=== PATIENT | male | born 1955 | race Two or more races ===

== ENCOUNTER 2021-06-01 02:12 | Inpatient (IN) | payer OTHER ==
[2021-06-01] MEDS ORDERED: MAG HYDROX/AL HYDROX/SIMETH 30 ML UNIT-DOSE CUP PO ONE (02:32)
[2021-06-01] MEDS ORDERED: MAG HYDROX/AL HYDROX/SIMETH 30 ML UNIT-DOSE CUP ONE (02:40)
[2021-06-01 02:59] LABS: BASO % 0.5 % (0-2.0); EOS % 1.8 % (0-4.5); HEMATOCRIT 39.8 % (35.4-49); HEMOGLOBIN 13.7 GM/dL (11.7-16.9); LYMPH % 29.3 % (8-40); MCH 31.3 pg (25.7-33.7); MCHC 34.4 g/dl (32.0-35.9); MEAN PLT VOLUME 7.1 fl (7.5-11.1); MONO % 9.2 % (3.8-10.2); NEUT % 59.2 % (42.8-82.8); PLATELET COUNT 171 10^3/uL (134-434); RBC 4.37 M/mm3 (4.00-5.60); RDW 13.6 % (11.9-15.9); WHITE BLOOD COUNT 6.9 K/mm3 (4.0-10.0)
[2021-06-01 03:15] LABS: ACTIVATED PTT 45.8 SECONDS (25.2-36.5)
[2021-06-01 03:16] LABS: INR 1.16 (0.83-1.09); PROTHROMBIN TIME (PATIENT) 14.3 SEC (9.7-13.0)
[2021-06-01 03:17] LABS: CHLORIDE 103 mmol/L (98-107); SODIUM 139 mmol/L (136-145)
[2021-06-01 03:20] LABS: CALCIUM 8.6 mg/dL (8.5-10.1); GLUCOSE,RANDOM 83 mg/dL (74-106)
[2021-06-01 03:21] LABS: ALBUMIN 3.7 g/dl (3.4-5.0); ANION GAP 6 MMOL/L (8-16); BLOOD UREA NITROGEN 27.5 mg/dL (7-18); CO2 29 mmol/L (21-32); LIPASE 87 U/L (73-393); MAGNESIUM 1.9 mg/dL (1.8-2.4)
[2021-06-01 03:24] LABS: CREATININE 1.1 mg/dL (0.55-1.3); SGOT/AST 46 U/L (15-37); SGPT/ALT 21 U/L (13-61)
[2021-06-01 03:25] LABS: BILIRUBIN,TOTAL 0.6 mg/dL (0.2-1); TOT PROT 8.2 g/dl (6.4-8.2)
[2021-06-01 03:26] LABS: ALK PHOS 89 U/L (45-117)
[2021-06-01] MEDS ORDERED: PROMETHAZINE HCL 25 MG/1 ML VIAL IM PRN (08:54)
[2021-06-01] MEDS ORDERED: FOLIC ACID INJECTION - 1 MG, THIAMINE HCL 100 MG, MULTIVIT INJECTION ADULT 10 ML in SOD... IVPB ONE (08:56)
[2021-06-01] MEDS ORDERED: LORazepam 1 MG TABLET PO PRN (08:58)
[2021-06-01] MEDS ORDERED: POLYETHYLENE GLYCOL 3350 119 GM BTL PO SCH (10:00)
[2021-06-01] MEDS ORDERED: POLYETHYLENE GLYCOL (HEALTHYLAX) 3350 17 GM PACKET PO SCH (10:00)
[2021-06-01] MEDS ORDERED: methaDONE HCL 40 MG DISPERSABLE TABLET PO SCH (10:00)
[2021-06-01] MEDS ORDERED: methaDONE HCL 10 MG TABLET ONE (10:42)
[2021-06-01] MEDS ORDERED: ENOXAPARIN NA (PORCINE) 40 MG/0.4 ML DISP.SYRIN SQ ONE (10:43)
[2021-06-01] MEDS: NICOTINE 7 MG/24 HOURS TOPICAL PATCH TD SCH (10:47)
[2021-06-01] MEDS: ENOXAPARIN NA (PORCINE) 40 MG/0.4 ML DISP.SYRIN SQ SCH (10:47)
[2021-06-01] MEDS: DEXTROSE 5%-NORMAL SALINE 1,000 ML IV SCH (12:07)
[2021-06-01] MEDS ORDERED: LORazepam 1 MG TABLET ONE ×3 (13:06→23:26)
[2021-06-01] MEDS: LORazepam 2 MG TABLET PO SCH ×3 (13:12→23:29)
[2021-06-02] MEDS ORDERED: LORazepam 1 MG TABLET ONE (04:58)
[2021-06-02] MEDS: LORazepam 2 MG TABLET PO SCH ×2 (05:03→12:48)
[2021-06-02] MEDS ORDERED: methaDONE 40 MG, methaDONE 30 MG PO SCH (06:00)
[2021-06-02] MEDS ORDERED: methaDONE HCL 10 MG TABLET ONE (06:47)
[2021-06-02] MEDS ORDERED: methaDONE HCL 40 MG DISPERSABLE TABLET ONE (06:48)
[2021-06-02 08:21] LABS: BLOOD UREA NITROGEN 14.8 mg/dL (7-18); CHLORIDE 109 mmol/L (98-107); CREATININE 0.8 mg/dL (0.55-1.3); GLUCOSE,RANDOM 78 mg/dL (74-106); SODIUM 143 mmol/L (136-145)
[2021-06-02 08:22] LABS: ALBUMIN 3.1 g/dl (3.4-5.0); ALK PHOS 67 U/L (45-117); BILIRUBIN,TOTAL 0.5 mg/dL (0.2-1); CALCIUM 7.9 mg/dL (8.5-10.1); CO2 29 mmol/L (21-32); MAGNESIUM 1.8 mg/dL (1.8-2.4); PHOSPHOROUS 2.8 mg/dL (2.5-4.9); SGOT/AST 36 U/L (15-37); SGPT/ALT 18 U/L (13-61); TOT PROT 6.7 g/dl (6.4-8.2)
[2021-06-02 09:38] LABS: HEMATOCRIT 35.7 % (35.4-49); HEMOGLOBIN 12.2 GM/dL (11.7-16.9); MCH 31.2 pg (25.7-33.7); MCHC 34.1 g/dl (32.0-35.9); MEAN CELL VOLUME 91.6 fl (80-96); PLATELET COUNT 136 10^3/uL (134-434); RDW 13.9 % (11.9-15.9); WHITE BLOOD COUNT 4.1 K/mm3 (4.0-10.0)
[2021-06-02 09:39] LABS: MEAN PLT VOLUME 7.5 fl (7.5-11.1)
[2021-06-02] MEDS ORDERED: THIAMINE HCL 100 MG TABLET (FP) PO SCH (10:00)
[2021-06-02] MEDS ORDERED: FOLIC ACID 1 MG TABLET (FP) PO SCH (10:00)
[2021-06-02] MEDS: ENOXAPARIN NA (PORCINE) 40 MG/0.4 ML DISP.SYRIN SQ SCH (10:00)
[2021-06-02] MEDS ORDERED: LORazepam 2 MG/ML SDV VIAL ONE (12:49)
[2021-06-02] MEDS: DEXTROSE 5%-NORMAL SALINE 1,000 ML IV SCH ×2 (12:49→18:05)
[2021-06-02] MEDS ORDERED: PT OWN MED DRAWER 7, Y5N ONE (13:29)
[2021-06-02] MEDS: NICOTINE 7 MG/24 HOURS TOPICAL PATCH TD SCH (13:33)
[2021-06-02 16:08] LABS: BASO % 0.8 % (0-2.0); EOS % 2.8 % (0-4.5); HEMOGLOBIN 12.2 GM/dL (11.7-16.9); LYMPH % 36.1 % (8-40); MCH 30.9 pg (25.7-33.7); MCHC 33.9 g/dl (32.0-35.9); MEAN CELL VOLUME 91.1 fl (80-96); MEAN PLT VOLUME 7.3 fl (7.5-11.1); MONO % 9.6 % (3.8-10.2); NEUT % 50.7 % (42.8-82.8); PLATELET COUNT 131 10^3/uL (134-434); RBC 3.95 M/mm3 (4.00-5.60); RDW 13.9 % (11.9-15.9); WHITE BLOOD COUNT 4.3 K/mm3 (4.0-10.0)
[2021-06-02 16:26] LABS: EPI CELLS 2 /uL (0-25.1); HYALINE CASTS 0 /uL (0-3.1); URINE APPEARANCE CLEAR; URINE BACTERIA 7 /uL (0-1359); URINE BILIRUBIN NEGATIVE (NEGATIVE); URINE COLOR YELLOW; URINE GLUCOSE (UA) NEGATIVE (NEGATIVE); URINE KETONE NEGATIVE (NEGATIVE); URINE LEUK ESTERASE NEGATIVE (NEGATIVE); URINE NITRITE NEGATIVE (NEGATIVE); URINE PROTEIN NEGATIVE (NEGATIVE); URINE RBC 190 /uL (0-23.9); URINE WBC 6 /uL (0-25.8)
[2021-06-02 16:33] LABS: COCAINE, UR NEGATIVE (NEGATIVE); URINE BARBITURATES NEGATIVE (NEGATIVE)
[2021-06-02 16:34] LABS: PHENCYCLIDINE,URINE NEGATIVE (NEGATIVE)
[2021-06-02 16:46] LABS: METHADONE, UR POSITIVE (NEGATIVE); OPIATES, URI POSITIVE (NEGATIVE); URINE AMPHETAMINES NEGATIVE (NEGATIVE); URINE BENZODIAZEPINES POSITIVE (NEGATIVE)
[2021-06-02] MEDS ORDERED: LORazepam 1 MG TABLET PO PRN (17:18)
[2021-06-02] MEDS ORDERED: PROMETHAZINE HCL 25 MG/1 ML VIAL IM PRN (17:18)
[2021-06-02 17:43] VITALS: BMI 23.3
[2021-06-02] MEDS ORDERED: PNEUMOC 13-VAL CONJ-DIP CRM/PF 0.5 ML DISP.SYRIN IM ONE (17:43)
[2021-06-02] MEDS ORDERED: FLU VACC QS2021-22(6MOS UP)/PF 60 MCG/0.5 ML SYRINGE IM ONE (17:43)
[2021-06-02] MEDS ORDERED: LORazepam 2 MG TABLET PO SCH (23:00)
[2021-06-03] MEDS ORDERED: LORazepam 1 MG TABLET PO SCH ×2 (00:15→05:00)
[2021-06-03] MEDS: LORazepam 2 MG TABLET PO SCH (02:39)
[2021-06-03] MEDS: LORazepam 1 MG TABLET PO SCH ×2 (05:57→11:41)
[2021-06-03] MEDS: DEXTROSE 5%-NORMAL SALINE 1,000 ML IV SCH (05:58)
[2021-06-03] MEDS ORDERED: methaDONE 40 MG, methaDONE 30 MG PO SCH (06:00)
[2021-06-03 08:28] LABS: BASO % 0.5 % (0-2.0); EOS % 2.7 % (0-4.5); HEMATOCRIT 38.6 % (35.4-49); MCH 31.2 pg (25.7-33.7); MCHC 33.6 g/dl (32.0-35.9); MEAN CELL VOLUME 92.7 fl (80-96); MEAN PLT VOLUME 7.7 fl (7.5-11.1); MONO % 8.2 % (3.8-10.2); NEUT % 52.6 % (42.8-82.8); PLATELET COUNT 162 10^3/uL (134-434); RBC 4.16 M/mm3 (4.00-5.60); WHITE BLOOD COUNT 5.6 K/mm3 (4.0-10.0)
[2021-06-03] MEDS ORDERED: FOLIC ACID 1 MG TABLET (FP) PO SCH (10:00)
[2021-06-03] MEDS ORDERED: THIAMINE HCL 100 MG TABLET (FP) PO SCH (10:00)
[2021-06-03] MEDS ORDERED: NICOTINE 7 MG/24 HOURS TOPICAL PATCH TD SCH (10:00)
[2021-06-03 16:11] LABS: BLOOD UREA NITROGEN 9.4 mg/dL (7-18); CALCIUM 8.4 mg/dL (8.5-10.1)
[2021-06-03 16:14] LABS: CREATININE 0.8 mg/dL (0.55-1.3)
[2021-06-03 16:16] LABS: BILIRUBIN,TOTAL 0.4 mg/dL (0.2-1); TOT PROT 6.8 g/dl (6.4-8.2)
[2021-06-03 17:38] VITALS: TEMP 98
[2021-06-03 17:40] VITALS: BP 138/85; PULSE 85
[2021-06-04] MEDS ORDERED: LORazepam 0.5 MG TABLET PO PRN ×2
[2021-06-04] MEDS ORDERED: LORazepam 0.5 MG TABLET PO SCH ×2 (05:00)
[2021-06-05] MEDS ORDERED: LORazepam 0.5 MG TABLET PO ONE ×2 (05:00)
== END 2021-06-03 17:51 | disposition other institution (70) | DRG 897 ==
LOC: JER 02:12 → JERBED 04:43 → UNDOADMOB 04:43 → INTOOBSV 08:54 → OBSVTOIN 08:54 → JERBED 08:54 → J6S 06-02 17:19
PROVIDERS: ADMIT Internal Medicine; ATTEND Internal Medicine
PROC: HZ2ZZZZ Detoxification Services for Substance Abuse Treatment (ICD-10-PCS; principal; 2021-06-01)
DX: F10.239 Alcohol dependence with withdrawal, unspecified (principal); M62.82 Rhabdomyolysis; F11.23 Opioid dependence with withdrawal; K80.20 Calculus of gallbladder without cholecystitis without obstruction; K83.8 Other specified diseases of biliary tract; K86.89 Other specified diseases of pancreas; K46.9 Unspecified abdominal hernia without obstruction or gangrene; I25.10 Atherosclerotic heart disease of native coronary artery without angina pectoris; Z98.61 Coronary angioplasty status; I10 Essential (primary) hypertension
CPT/HCPCS: 36415; 71046-TC-FY; 74177-TC; 74181-TC; 76705-TC; 80053; 80307; 81003; 82550; 82553; 83605; 83690; 83735; 84100; 84484; 85025; 85027; 85610; 85730; 86705; 86706; 86707; 87350; 87517; 87902; 90670; 90686; 93005; 93010; 97116-GP; 97161-GP; 99285-25; C9803; G0008; Q9967; U0003; U0005

== ENCOUNTER 2021-06-03 18:19 | Inpatient (IN) | payer OTHER ==
[2021-06-03] MEDS ORDERED: MAGNESIUM CITRATE 300 ML BOTTLE PO PRN (20:05)
[2021-06-03] MEDS ORDERED: MENTHOL/PHENOL 1 EACH UD MM PRN (20:05)
[2021-06-03] MEDS ORDERED: ONDANSETRON *ODT* 4 MG TABLET SL PRN (20:05)
[2021-06-03] MEDS ORDERED: hydrOXYzine PAMOATE 25 MG CAPSULE (FP) PO PRN (20:05)
[2021-06-03] MEDS ORDERED: ACETAMINOPHEN 325 MG TABLET (FP) PO PRN ×2 (20:05)
[2021-06-03] MEDS ORDERED: BISMUTH SUBSALICYLATE 524 MG/30 ML PO PRN (20:05)
[2021-06-03] MEDS ORDERED: LISINOPRIL 5 MG TABLET PO ONE (20:07)
[2021-06-03 21:40] VITALS: BMI 23.9
[2021-06-04] MEDS ORDERED: MAG HYDROX/AL HYDROX/SIMETH 30 ML UNIT-DOSE CUP ONE ×2 (00:54→05:59)
[2021-06-04] MEDS ORDERED: MELATONIN 5 MG TABLETS PO ONE (01:15)
[2021-06-04] MEDS ORDERED: LISINOPRIL 10 MG TABLET ONE (01:19)
[2021-06-04] MEDS: MELATONIN 5 MG TABLETS PO SCH ×2 (01:26→22:06)
[2021-06-04] MEDS: DOCUSATE SODIUM 100 MG CAPSULE (FP) PO SCH ×2 (01:26→22:04)
[2021-06-04] MEDS: THIAMINE HCL 100 MG TABLET (FP) PO SCH ×2 (01:26→22:05)
[2021-06-04] MEDS: MAG HYDROX/AL HYDROX/SIMETH 30 ML UNIT-DOSE CUP PO PRN (06:05)
[2021-06-04] MEDS ORDERED: diazePAM 5 MG TABLET PO ONE (09:03)
[2021-06-04] MEDS ORDERED: diazePAM 5 MG TABLET PO PRN (09:03)
[2021-06-04] MEDS ORDERED: methaDONE HCL 10 MG TABLET PO SCH (09:30)
[2021-06-04] MEDS ORDERED: NICOTINE 14 MG/24 HOURS TOPICAL PATCH TD SCH (10:00)
[2021-06-04] MEDS ORDERED: NICOTINE 7 MG/24 HOURS TOPICAL PATCH TD SCH (10:03)
[2021-06-04] MEDS: diazePAM 5 MG TABLET PO SCH ×3 (10:41→22:05)
[2021-06-04] MEDS ORDERED: methaDONE HCL 40 MG DISPERSABLE TABLET ONE (11:08)
[2021-06-04] MEDS ORDERED: methaDONE HCL 10 MG TABLET ONE (11:08)
[2021-06-04] MEDS: PRENATAL VITAMINS W/ FOLIC ACID TABLET (FP) PO SCH (11:09)
[2021-06-04] MEDS: methaDONE 40 MG, methaDONE 30 MG PO SCH (11:09)
[2021-06-04] MEDS: MAGNESIUM HYDROX 2400MG/30ML ORAL SUSPENSION 30 ML CUP PO PRN (16:32)
[2021-06-04] MEDS: RIVAROXABAN 20 MG TABLET PO SCH (17:38)
[2021-06-05] MEDS ORDERED: methaDONE HCL 10 MG TABLET ONE (04:05)
[2021-06-05] MEDS ORDERED: methaDONE HCL 40 MG DISPERSABLE TABLET ONE (04:06)
[2021-06-05] MEDS: diazePAM 5 MG TABLET PO SCH ×4 (05:31→22:06)
[2021-06-05] MEDS: methaDONE 40 MG, methaDONE 30 MG PO SCH (05:31)
[2021-06-05] MEDS ORDERED: LISINOPRIL 10 MG TABLET PO SCH (10:00)
[2021-06-05] MEDS ORDERED: SULFAMETHOXAZOLE/TRIMETHOPRIM 800MG/160MG D.S. TABLET PO SCH (10:15)
[2021-06-05] MEDS ORDERED: DOCUSATE SODIUM 100 MG CAPSULE (FP) PO SCH (10:15)
[2021-06-05] MEDS ORDERED: HYDROCHLOROTHIAZIDE 12.5 MG CAPSULE (FP) PO SCH ×2 (10:15)
[2021-06-05] MEDS ORDERED: ABACAVIR/DOLUTEGRAVIR/LAMIVUDI (TRIUMEQ) TABLET -NF PO SCH (10:15)
[2021-06-05] MEDS: PRENATAL VITAMINS W/ FOLIC ACID TABLET (FP) PO SCH (10:41)
[2021-06-05] MEDS: MAGNESIUM HYDROX 2400MG/30ML ORAL SUSPENSION 30 ML CUP PO PRN (12:05)
[2021-06-05] MEDS: RIVAROXABAN 20 MG TABLET PO SCH (17:03)
[2021-06-05] MEDS: THIAMINE HCL 100 MG TABLET (FP) PO SCH (22:06)
[2021-06-05] MEDS: DOCUSATE SODIUM 100 MG CAPSULE (FP) PO SCH (22:07)
[2021-06-05] MEDS: MELATONIN 5 MG TABLETS PO SCH (22:07)
[2021-06-06] MEDS: MAG HYDROX/AL HYDROX/SIMETH 30 ML UNIT-DOSE CUP PO PRN (01:08)
[2021-06-06] MEDS ORDERED: methaDONE HCL 10 MG TABLET ONE (04:02)
[2021-06-06] MEDS ORDERED: methaDONE HCL 40 MG DISPERSABLE TABLET ONE (04:03)
[2021-06-06] MEDS: methaDONE 40 MG, methaDONE 30 MG PO SCH (05:36)
[2021-06-06] MEDS ORDERED: diazePAM 5 MG TABLET PO SCH (06:00)
[2021-06-06 09:21] VITALS: BP 138/88; PULSE 108; TEMP 97.6
[2021-06-07] MEDS ORDERED: diazePAM 5 MG TABLET PO SCH (06:00)
[2021-06-08] MEDS ORDERED: diazePAM 5 MG TABLET PO ONE (06:00)
== END 2021-06-06 09:21 | disposition home or self-care (01) | DRG 897 ==
LOC: YASAS 18:19 → Y6N 06-04 09:57
PROVIDERS: ADMIT Allergy & Immunology; ATTEND Allergy & Immunology
PROC: HZ2ZZZZ Detoxification Services for Substance Abuse Treatment (ICD-10-PCS; principal; 2021-06-04)
DX: F10.230 Alcohol dependence with withdrawal, uncomplicated (principal); F13.230 Sedative, hypnotic or anxiolytic dependence with withdrawal, uncomplicated; F17.210 Nicotine dependence, cigarettes, uncomplicated; Z21 Asymptomatic human immunodeficiency virus [HIV] infection status; I25.10 Atherosclerotic heart disease of native coronary artery without angina pectoris; I10 Essential (primary) hypertension; Z95.5 Presence of coronary angioplasty implant and graft; K59.00 Constipation, unspecified; R26.89 Other abnormalities of gait and mobility
CPT/HCPCS: 36415; 84132; 86780